=== PATIENT | female | born 1950 | race Caucasian/White ===

== ENCOUNTER 2017-06-27 12:03 | Inpatient (IN) | payer MEDICARE, OTHER ==
[2017-06-27] MEDS ORDERED: Cyclobenzaprine 10 MG Tab PO PRN (13:10)
[2017-06-27] MEDS ORDERED: Loperamide 2 MG Cap PO PRN (13:15)
[2017-06-27 13:32] LABS: CHLORIDE,CL 104 mmol/L (98-115); SODIUM,NA 138 mmol/L (136-145)
[2017-06-27] MEDS: ceFAZolin 1 GM Vial IVPUSH SCH (15:15)
[2017-06-27] MEDS: Enoxaparin 40 MG/0.4 ML Syringe SUBCUT SCH (15:15)
[2017-06-27] MEDS: Acetaminophen 650 MG Tab.ER PO SCH (15:15)
[2017-06-27] MEDS ORDERED: Simethicone 80 MG Tab.Chew PO SCH (18:00)
[2017-06-27] MEDS: metFORMIN 500 MG Tab PO SCH (18:00)
[2017-06-27] MEDS ORDERED: Loperamide 2 MG Cap PO ONE (18:00)
[2017-06-27] MEDS ORDERED: Diclofenac Sodium 75 MG Tab.EC PO SCH (21:00)
[2017-06-27] MEDS: Pregabalin 100 MG Cap PO SCH (21:00)
[2017-06-27] MEDS: Omeprazole 20 MG Cap.CR PO SCH (21:00)
[2017-06-27] MEDS ORDERED: tiZANidine 4 MG Tab PO SCH (21:00)
[2017-06-27] MEDS ORDERED: Acetaminophen 325 MG Tab ONE (23:44)
[2017-06-27] MEDS ORDERED: diphenhydrAMINE 25 MG Cap ONE (23:45)
[2017-06-28] MEDS: Acetaminophen 650 MG Tab.ER PO SCH ×2 (03:39→06:08)
[2017-06-28] MEDS: ceFAZolin 1 GM Vial IVPUSH SCH ×4 (03:39→21:13)
[2017-06-28] MEDS: Misoprostol 100 MCG Tab PO SCH ×3 (03:40→20:21)
[2017-06-28] MEDS: Diclofenac Sodium 1% Gel 100 GM Tube TOP SCH ×3 (03:42→21:10)
[2017-06-28] MEDS: Sodium Chloride 0.9% 5 ML Syringe FLUSH PRN (06:12)
[2017-06-28] MEDS ORDERED: DICLOFENAC SODIUM 75 MG PO SCH (06:22)
[2017-06-28] MEDS ORDERED: metFORMIN 500 MG Tab PO SCH ×2 (08:00→12:00)
[2017-06-28] MEDS: Pregabalin 100 MG Cap PO SCH ×2 (08:17→20:21)
[2017-06-28] MEDS: Clopidogrel 75 MG Tab PO SCH (08:17)
[2017-06-28] MEDS: Cholecalciferol (Vitamin D3) 1,000 Unit Tab PO SCH (08:18)
[2017-06-28] MEDS: Calcium Carbonate 500 MG Tab.Chew PO SCH (08:18)
[2017-06-28] MEDS: Aspirin 81 MG Tab.EC PO SCH (08:22)
[2017-06-28] MEDS: Iron Polysaccharides Complex 150 MG Cap PO SCH (08:22)
[2017-06-28] MEDS: Potassium Chloride 10 MEQ Tab.ER PO SCH (08:23)
[2017-06-28] MEDS: Furosemide 20 MG Tab PO SCH (08:23)
[2017-06-28] MEDS: Hydrochlorothiazide 12.5 MG Cap PO SCH (08:23)
[2017-06-28] MEDS: DICLOFENAC SODIUM 75 MG PO SCH ×2 (08:32→18:23)
[2017-06-28] MEDS: Enoxaparin 40 MG/0.4 ML Syringe SUBCUT SCH (08:33)
[2017-06-28] MEDS ORDERED: Non-Formulary Medication 1 Each (Ubidecarenone [Co Q-10] 100 MG) PO SCH (09:00)
--- NOTE | 2017-06-28 10:54 | PN ---
06/28/2017 PATIENT NAME: LOU BEYER CHIEF COMPLAINT: Feels much better. Cellulitis is improving. She is diuresing somewhat. HISTORY: This 66-year-old, very morbidly obese female, who I had seen in [facility] few days ago for an ulceration and cellulitis of the left lower extremity. I had desired to admit her to [facility]. However, she refused at that time. I had given her 1 g of Rocephin for her cellulitis and had her followup the subsequent day. She was subsequently placed on oral Keflex, again was suggested for admission. She refused. However, she returned yesterday for a followup and she was subsequently admitted for ulceration and cellulitis of the left lower extremity. She had stated she had this ongoing ulceration in her left lower extremity for few weeks, was evaluated a few weeks ago at [facility] by an another provider, was given some reassurance and watchful waiting. However, she admitted she subsequently injured it since then on the side of her van door. The patient does live in an [facility] [place] in some unsanitary conditions. She does have diabetes mellitus. She is prone to infections. She was admitted for IV antibiotics and close monitoring. PHYSICAL EXAMINATION: VITAL SIGNS: The patient is 337 pounds, BMI of 48, blood pressure 120/76, temperature 98.5, respiratory rate 18, and O2 sats 95% on room air. LUNGS: Clear to auscultation. CV: Grade 1 to 2 soft systolic murmur. Regular rate and rhythm. ABDOMEN: Large body habitus. Good bowel tones. EXTREMITIES: Lower extremities; 1+ nonpitting edema to her right lower extremity, 2+ to her left lower extremity, significantly larger than her right extremity. However, this is chronic. The patient does have improving erythema of the left mtz area of 7 cm x 3 cm, slightly open with surrounding erythema, however, some wrinkling noted, does have approximately three small 0.5 cm satellite lesions just superior and lateral to her ulceration. LABORATORY DATA: Dated 06/27/2017; white count 6.9, hemoglobin 11.4, hematocrit 35.6, and platelets 453,000. Sodium and potassium are normal. BUN 46, creatinine 1.18, glucose 214, and calcium 9.3. PRIMARY DIAGNOSIS: Skin infections with some surrounding cellulitis of the left lower extremity. There is significant improvement. Continue with Ancef 1 g q.8 hours. Ankle pumps. Left lower extremity elevation. Secondary problems, all which are stable. Type 2 diabetes mellitus. Recent A1c of 6.8%, restart her Actos, continue with metformin; hypertension, stable; hyperlipidemia; obesity; overactive bladder; lumbar stenosis; coronary artery disease with stent, which is chronic. She is on dual-antiplatelet therapy. SI joint pain. 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 Osteoarthritis, Tylenol Arthritis. Overall plan: We will keep her inpatient today, elevate left lower extremity. Give her Lasix 20 mg x1 today and continue antibiotics. Monitor her carefully. /[id number]/MODL
[2017-06-28] MEDS ORDERED: Loperamide 2 MG Cap PO PRN (11:30)
[2017-06-28] MEDS: metFORMIN 500 MG Tab PO SCH ×2 (12:08→18:22)
[2017-06-28] MEDS ORDERED: Simethicone 80 MG Tab.Chew PO PRN (13:00)
[2017-06-28] MEDS: Omeprazole 20 MG Cap.CR PO SCH (20:22)
[2017-06-28] MEDS: Acetaminophen 650 MG Tab.ER PO PRN (21:06)
[2017-06-28] MEDS: diphenhydrAMINE 25 MG Cap PO PRN (21:06)
[2017-06-29] MEDS: ceFAZolin 1 GM Vial IVPUSH SCH ×3 (05:50→22:15)
[2017-06-29] MEDS: Sodium Chloride 0.9% 5 ML Syringe FLUSH PRN ×2 (05:50→22:21)
[2017-06-29] MEDS: DICLOFENAC SODIUM 75 MG PO SCH ×2 (07:32→17:54)
[2017-06-29] MEDS: Diclofenac Sodium 1% Gel 100 GM Tube TOP SCH ×3 (07:34→22:22)
[2017-06-29] MEDS: Calcium Carbonate 500 MG Tab.Chew PO SCH (08:25)
[2017-06-29] MEDS: Misoprostol 100 MCG Tab PO SCH ×2 (08:25→22:12)
[2017-06-29] MEDS: Aspirin 81 MG Tab.EC PO SCH (08:26)
[2017-06-29] MEDS: Hydrochlorothiazide 12.5 MG Cap PO SCH (08:26)
[2017-06-29] MEDS: Cholecalciferol (Vitamin D3) 1,000 Unit Tab PO SCH (08:26)
[2017-06-29] MEDS: Furosemide 20 MG Tab PO SCH (08:26)
[2017-06-29] MEDS: Potassium Chloride 10 MEQ Tab.ER PO SCH (08:26)
[2017-06-29] MEDS: Clopidogrel 75 MG Tab PO SCH (08:26)
[2017-06-29] MEDS: Iron Polysaccharides Complex 150 MG Cap PO SCH (08:26)
[2017-06-29] MEDS: Pregabalin 100 MG Cap PO SCH ×2 (08:34→22:12)
--- NOTE | 2017-06-29 09:02 | PCM.PN ---
- General Info Date of Service: 06/29/17 Functional Status: Reports: Pain Controlled, Tolerating Diet, Incentive Spirometry. Denies: Ambulating, New Symptoms - Review of Systems General: Denies: Fever, Weakness Gastrointestinal: Denies: Nausea Musculoskeletal: Reports: Other Neurological: Reports: No Symptoms Psychiatric: Reports: No Symptoms - Patient Data Vitals - Most Recent: Last Vital Signs Temp 97.2 F 06/29/17 05:18 Pulse 72 06/29/17 05:18 Resp 18 06/29/17 05:18 BP 116/71 06/29/17 08:25 Pulse Ox 94 L 06/29/17 05:18 Weight - Most Recent: 337 lb 4.8 oz I&O - Last 24 Hours: Intake & Output 06/28/17 06/29/17 06/29/17 22:59 06:59 14:59 Intake Total 470 100 Output Total 550 850 Balance -80 -750 Lab Results Last 24 Hours: Laboratory Results - last 24 hr 06/28/17 Range/Units 12:03 POC Glucose 178 H (74-106) mg/dl Dale Results Last 24 Hours: Microbiology 06/27/17 13:04 Gram Stain - Final Wound - Leg, Left Med Orders - Current: Current Medications Acetaminophen (Tylenol Arthritis Pain) 650 mg PO Q8H PRN PRN Reason: pain Last Admin: 06/28/17 21:06 Dose: 650 mg Aspirin (Halfprin) 81 mg PO DAILY [facility] Last Admin: 06/29/17 08:26 Dose: 81 mg Calcium Carbonate/Glycine (Tums) 500 mg PO DAILY [facility] Last Admin: 06/29/17 08:25 Dose: Not Given Cefazolin Sodium (Ancef) 1 gm IVPUSH Q8HR [facility] Last Admin: 06/29/17 05:50 Dose: 1 gm Cholecalciferol (Vitamin D3) 1,000 units PO DAILY [facility] Last Admin: 06/29/17 08:26 Dose: 1,000 units Clopidogrel Bisulfate (Plavix) 75 mg PO DAILY [facility] Last Admin: 06/29/17 08:26 Dose: 75 mg Diclofenac Sodium (Voltaren 1% Gel) 2 gm TOP BID [facility] Last Admin: 06/29/17 08:25 Dose: Not Given Diphenhydramine HCl (Benadryl) 25 mg PO BEDTIME PRN PRN Reason: SLEEP Last Admin: 06/28/17 21:06 Dose: 25 mg Furosemide (Lasix) 20 mg PO DAILY [facility] Last Admin: 06/29/17 08:26 Dose: 20 mg Hydrochlorothiazide (Hydrochlorothiazide) 12.5 mg PO DAILY [facility] Last Admin: 06/29/17 08:26 Dose: 12.5 mg Loperamide HCl (Imodium) 2 mg PO Q4H PRN PRN Reason: LOOSE STOOL Metformin HCl (Glucophage) 1,500 mg PO DAILY@1800 [facility] Last Admin: 06/28/17 18:22 Dose: 1,500 mg Metformin HCl (Glucophage) 1,000 mg PO DAILY@1200 [facility] Last Admin: 06/28/17 12:08 Dose: 1,000 mg Misoprostol (Cytotec) 200 mcg PO BID [facility] Last Admin: 06/29/17 08:25 Dose: 200 mcg Omeprazole (Omeprazole) 20 mg PO BEDTIME [facility] Last Admin: 06/28/17 20:22 Dose: 20 mg Ptom Tanzeum (30mg Pen Ijn) 1 each SUBCUT Mcdonough@0900 [facility] Ptom Diclofenac (Sodium Er 75 Mg Tab) 1 each PO BIDMEALS [facility] Last Admin: 06/29/17 07:32 Dose: 1 each Polysaccharide Iron Complex (Ferrex 150) 150 mg PO DAILY [facility] Last Admin: 06/29/17 08:26 Dose: 150 mg Potassium Chloride (Klor-Con 10) 10 meq PO DAILY [facility] Last Admin: 06/29/17 08:26 Dose: 10 meq Pregabalin (Lyrica) 100 mg PO BID [facility] Last Admin: 06/29/17 08:34 Dose: 100 mg Simethicone (Simethicone) 120 mg PO TIDPC PRN PRN Reason: gas Sodium Chloride (Syrex Flush) 5 ml FLUSH Q8HR PRN PRN Reason: Keep Vein Open Last Admin: 06/29/17 05:50 Dose: 5 ml Valsartan (Diovan) 80 mg PO DAILY [facility] Last Admin: 06/29/17 08:25 Dose: 80 mg Discontinued Medications Acetaminophen (Tylenol Arthritis Pain) 650 mg PO Q8H [facility] Last Admin: 06/28/17 06:08 Dose: 650 mg Acetaminophen (Tylenol) Confirm Administered Dose 650 mg .ROUTE .STK-MED ONE Stop: 06/27/17 23:45 Last Admin: 06/27/17 23:45 Dose: 650 mg Cyclobenzaprine HCl (Flexeril) 10 mg PO TID PRN PRN Reason: muscle spasms Diclofenac Sodium (Voltaren) 75 mg PO BID [facility] Last Admin: 06/28/17 03:42 Dose: Not Given Diphenhydramine HCl (Benadryl) Confirm Administered Dose 25 mg .ROUTE .STK-MED ONE Stop: 06/27/17 23:46 Last Admin: 06/27/17 23:45 Dose: 25 mg Enoxaparin Sodium (Lovenox) 40 mg SUBCUT DAILY [facility] Last Admin: 06/28/17 08:33 Dose: 40 mg Loperamide HCl (Imodium) 2 mg PO ASDIRECTED PRN PRN Reason: LOOSE STOOL Loperamide HCl (Imodium) 4 mg PO ONETIME ONE Stop: 06/27/17 18:01 Last Admin: 06/27/17 18:00 Dose: 4 mg Metformin HCl (Glucophage) 1,000 mg PO 1200 FIONA Metformin HCl (Glucophage) 1,000 mg PO WITHBREAKFAST [facility] Last Admin: 06/28/17 09:06 Dose: Not Given Non-Formulary Medication (Ubidecarenone [Co Q-10]) 100 mg PO DAILY [facility] Albiglutide [Tanzeum (]) 0 each SUBCUT Mcdonough [facility] Ptom Diclofenac (Sodium Er 75 Mg Tab) 1 each PO BID [facility] Simethicone (Simethicone) 125 mg PO TIDMEALS [facility] Last Admin: 06/28/17 08:12 Dose: Not Given Tizanidine HCl (Zanaflex) 4 mg PO BID [facility] Last Admin: 06/28/17 08:12 Dose: Not Given - Exam Quality Assessment: No: Supplemental Oxygen General: Alert, Oriented Extremities: Pedal Edema (Left Lower extremity: 3+ edema), Redness (redness improving LLE, significant healing ongoing of both cellulitis and wound, slight serosanguinous drainage. ). No: Bibiana's Sign, Leg Pain Skin: Other (redness improving LLE, significant healing ongoing of both cellulitis and wound, slight serosanguinous drainage. ) Wound/Incisions: Healing Well, Drainage, Erythema Improving Neurological: No New Focal Deficit Psy/Mental Status: Alert, Normal Affect, Normal Mood - Problem List Review Problem List Initiated/Reviewed/Updated: Yes - My Orders Last 24 Hours: My Active Orders 06/28/17 08:00 Patient's Own Medication [Ptom] 1 each PO BIDMEALS 06/28/17 09:00 Aspirin [Halfprin] 81 mg PO DAILY Calcium Carbonate [Tums] 500 mg PO DAILY Cholecalciferol (Vitamin D3) [Vitamin D3] 1,000 units PO DAILY Clopidogrel [Plavix] 75 mg PO DAILY Furosemide [Lasix] 20 mg PO DAILY Hydrochlorothiazide 12.5 mg PO DAILY Iron Polysaccharides Complex [Ferrex 150] 150 mg PO DAILY Potassium Chloride [Klor-Con 10] 10 meq PO DAILY Valsartan [Diovan] 80 mg PO DAILY 06/28/17 11:30 Loperamide [Imodium] 2 mg PO Q4H PRN 06/28/17 12:00 metFORMIN [Glucophage] 1,000 mg PO DAILY@1200 06/28/17 13:00 Simethicone 120 mg PO TIDPC PRN 06/28/17 13:03 RT Incentive Spirometry [RC] ASDIRECTED 07/03/17 09:00 Patient's Own Medication [Ptom] 1 each SUBCUT Mcdonough@0900 - Plan Plan:: Primary diagnosis skin infection with surrounding cellulitis LLE, continues to improve, less serosanguineous weeping today, healing well, no more warmth, less edema, will allow ambulation on the floor today, culture demonstrate few gram-positive cocci , no PMNs, clinically responding to Ancef, will continue Chronic problems T2DM, A1c 6.8%, restarted Actos and metformin Obesity, OAB, lumbar stenosis, Coronary artery disease with stent, DAPT Facet joint syndrome, controlled on NSAID cream, Osteoarthritis, controlled with Tylenol arthritis Overall plan today, ambulate on the floor, continue IV antibiotics, anticipate discharge in a.m. with by mouth antibiotics
[2017-06-29] MEDS ORDERED: MAX FREEZE TOP PRN (09:55)
[2017-06-29] MEDS: metFORMIN 500 MG Tab PO SCH ×2 (11:48→17:54)
[2017-06-29] MEDS: Omeprazole 20 MG Cap.CR PO SCH (22:11)
[2017-06-29] MEDS: Acetaminophen 650 MG Tab.ER PO PRN (22:12)
[2017-06-29] MEDS: diphenhydrAMINE 25 MG Cap PO PRN (22:12)
[2017-06-30] MEDS: ceFAZolin 1 GM Vial IVPUSH SCH (05:27)
[2017-06-30] MEDS: Diclofenac Sodium 1% Gel 100 GM Tube TOP SCH ×2 (07:02→08:30)
[2017-06-30] MEDS: Hydrochlorothiazide 12.5 MG Cap PO SCH (08:29)
[2017-06-30] MEDS: Iron Polysaccharides Complex 150 MG Cap PO SCH (08:29)
[2017-06-30] MEDS: Misoprostol 100 MCG Tab PO SCH (08:29)
[2017-06-30] MEDS: DICLOFENAC SODIUM 75 MG PO SCH (08:29)
[2017-06-30] MEDS: Clopidogrel 75 MG Tab PO SCH (08:29)
[2017-06-30] MEDS: Pregabalin 100 MG Cap PO SCH (08:29)
[2017-06-30] MEDS: Furosemide 20 MG Tab PO SCH (08:30)
[2017-06-30] MEDS: Aspirin 81 MG Tab.EC PO SCH (08:30)
[2017-06-30] MEDS: Cholecalciferol (Vitamin D3) 1,000 Unit Tab PO SCH (08:30)
[2017-06-30] MEDS: Calcium Carbonate 500 MG Tab.Chew PO SCH (08:30)
[2017-06-30] MEDS: Potassium Chloride 10 MEQ Tab.ER PO SCH (08:30)
[2017-06-30 08:33] VITALS: BP 131/68
--- NOTE | 2017-06-30 09:21 | PCM.DCSUM1 ---
Discharge Summary - Hospital Course Brief History: 66-year-old obese female was admitted due to wound infection and cellulitis left lower extremity. She was initially seen [facility] , refused admission due to personal reasons and schedule conflicts, was given 1 g of Rocephin followed up the next day continued to refuse admission was given oral antibiotics and eventually upon follow-up agreed to be admitted to the hospital for IV antibiotics. - Discharge Data Discharge Date: 06/30/17 Discharge Disposition: Home, Self-Care 01 Condition: Good - Patient Summary/Data Complications: No complications during hospital stay Hospital Course: Patient's hospital course went as expected without complication, had no fever, we continued with twice a day dressing changes, shower, use cleansing sterile soap, Ancef IV antibiotics, she improved approximately 80-90% with decreasing erythrema, decreasing swelling and drainage. Wound culture demonstrate few gram- positive cocci, no PMNs. Her left lower extremity was elevated - Patient Instructions Diet: Usual Diet as Tolerated Activity: Elevate Extremity Driving: Do Not Drive Showering/Bathing: May Shower Wound/Incision Care: Keep Operative Site/Wound Site Clean and Dry, Change Dressing Daily (Twice a day daily dressing) Notify Provider of: Fever, Increased Pain, Swelling and Redness, Drainage Other/Special Instructions: Change dressing twice daily as instructed, shower gently cleanse with Dial soap, blot dry, then apply dressing, keep lower extremity elevated as much as possible, wrap left leg as instructed upon discharge. Avoid putting any creams or ointments. If dressing becomes soiled immediately shower and reapply new sterile dressing, (avoid using old dressing) - Discharge Plan Prescriptions/Med Rec: Cephalexin [Keflex] 500 mg PO Q8H #15 cap Home Medications: Home Meds Glimepiride [Amaryl] 4 mg PO DAILY 04/23/14 [History] Meclizine [Antivert] 25 mg PO Q4HR PRN 04/23/14 [History] Pioglitazone [Actos] 30 mg PO DAILY 04/23/14 [History] Pregabalin [Lyrica] 100 mg PO BID 04/23/14 [History] Valsartan/Hydrochlorothiazide [Valsartan-Hctz 80-12.5 mg Tab] 1 each PO DAILY [History] diphenhydrAMINE HCl [Benadryl] 25 mg PO DAILY PRN 04/23/14 [History] metFORMIN [Glucophage] 1,000 mg PO DAILY@1200 04/23/14 [History] Acetaminophen [Tylenol Arthritis Pain] 650 mg PO Q8H PRN 07/17/14 [History] Calcium Carbonate [Calcium] 500 mg PO DAILY 07/17/14 [History] Cholecalciferol (Vitamin D3) [Vitamin D3] 1,000 unit PO DAILY 07/17/14 [History] metFORMIN [Glucophage] 1,500 mg PO DAILY@1800 07/17/14 [History] Albiglutide [Tanzeum] 30 mg SQ WEEKLY #4 ml 07/31/14 [Rx] Omeprazole 20 mg PO BEDTIME 08/26/15 [History] Clopidogrel [Plavix] 75 mg PO DAILY 12/12/15 [History] Diclofenac Sodium [Voltaren 1% Gel] 2 gm TOP BID 12/12/15 [History] Arnica 1 applic TOP TID PRN 06/27/17 [History] Aspirin 81 mg PO DAILY 06/27/17 [History] Diclofenac Sodium [Voltaren] 75 mg PO BID 06/27/17 [History] Fenofibrate 80 mg PO DAILY 06/27/17 [History] Furosemide [Lasix] 20 mg PO DAILY 06/27/17 [History] Hydrocortisone [Hydrocortisone 1% Crm] 1 applic TOP BID 06/27/17 [History] Iron Polysaccharides Complex [Ferrex 150] 150 mg PO DAILY 06/27/17 [History] Loperamide HCl [Imodium A-D] 2 mg PO ASDIRECTED 06/27/17 [History] Misoprostol [Cytotec] 200 mg PO BID 06/27/17 [History] Niacin 100 mg PO TID 06/27/17 [History] Nitroglycerin [Nitrostat] 0.4 mg SL Q5M PRN 06/27/17 [History] Phytonadione [Mephyton] 5 mg PO ASDIRECTED PRN 06/27/17 [History] Potassium Chloride [Klor-Con 10] 10 meq PO DAILY 06/27/17 [History] Simethicone [Gas Relief] 125 mg PO TIDMEALS PRN 06/27/17 [History] Vitamin E 100 mg PO DAILY 06/27/17 [History] Echinacea Acz 1 tab PO DAILY 06/28/17 [History] Excedrin Back And Body 1 tab PO ASDIRECTED PRN 06/28/17 [History] diphenhydrAMINE HCl [Diphenhydramine HCl] 25 mg PO 2100 PRN 06/28/17 [History] Cephalexin [Keflex] 500 mg PO Q8H #15 cap 06/30/17 [Rx] Referrals: Fredo Zarate [employer] [Nurse Practitioner] - 07/05/17 - Discharge Summary/Plan Comment DC Time >30 min.: Yes Discharge Summary/Plan Comment: Final diagnosis skin infection with surrounding cellulitis LLE, cx few gram-positive cocci, no PMNs significant improvement, Chronic problems T2DM, Obesity, OAB, lumbar stenosis, Coronary artery disease with stent, Facet joint syndrome, Osteoarthritis, Disposition Patient will be discharged from hospital with home self-care dressings twice a day, shower, gentle dials so, wrapped carefully, do not apply any creams or ointments, detailed instructions on proper wrapping, keep elevated, avoid scrubbing healthy granulating tissue as demonstrated, if dressing soiled apply new sterile dressing, NO NOT REUSE DRESSINGS, keep left leg elevated, Keflex 500 mg by mouth every 8 hours 5 days. I will see her next Tuesday in the [place] [facility]. Report worsening pain, erythremia or worsening drainage. - General Info Date of Service: 06/30/17 Functional Status: Reports: Pain Controlled - Review of Systems Gastrointestinal: Denies: Diarrhea Skin: Reports: Rash (Left lower extremity) - Patient Data Vitals - Most Recent: Last Vital Signs Temp 97.6 F 06/30/17 06:09 Pulse 85 06/30/17 06:09 Resp 18 06/30/17 06:09 BP 131/68 06/30/17 08:29 Pulse Ox 94 L 06/30/17 06:09 Weight - Most Recent: 337 lb 4.8 oz I&O - Last 24 hours: Intake & Output 06/29/17 06/30/17 06/30/17 22:59 06:59 14:59 Intake Total 400 50 Output Total 400 150 Balance 0 -100 NANETTE Results - Last 24 hrs: Microbiology 06/27/17 13:04 Gram Stain - Final Wound - Leg, Left Med Orders - Current: Current Medications Acetaminophen (Tylenol Arthritis Pain) 650 mg PO Q8H PRN PRN Reason: pain Last Admin: 06/29/17 22:12 Dose: 650 mg Aspirin (Halfprin) 81 mg PO DAILY [facility] Last Admin: 06/30/17 08:30 Dose: 81 mg Calcium Carbonate/Glycine (Tums) 500 mg PO DAILY [facility] Last Admin: 06/30/17 08:30 Dose: Not Given Cefazolin Sodium (Ancef) 1 gm IVPUSH Q8HR [facility] Last Admin: 06/30/17 05:27 Dose: 1 gm Cholecalciferol (Vitamin D3) 1,000 units PO DAILY [facility] Last Admin: 06/30/17 08:30 Dose: 1,000 units Clopidogrel Bisulfate (Plavix) 75 mg PO DAILY [facility] Last Admin: 06/30/17 08:29 Dose: 75 mg Diclofenac Sodium (Voltaren 1% Gel) 2 gm TOP BID [facility] Last Admin: 06/30/17 08:30 Dose: Not Given Diphenhydramine HCl (Benadryl) 25 mg PO BEDTIME PRN PRN Reason: SLEEP Last Admin: 06/29/17 22:12 Dose: 25 mg Furosemide (Lasix) 20 mg PO DAILY [facility] Last Admin: 06/30/17 08:30 Dose: 20 mg Hydrochlorothiazide (Hydrochlorothiazide) 12.5 mg PO DAILY [facility] Last Admin: 06/30/17 08:29 Dose: 12.5 mg Loperamide HCl (Imodium) 2 mg PO Q4H PRN PRN Reason: LOOSE STOOL Metformin HCl (Glucophage) 1,500 mg PO DAILY@1800 [facility] Last Admin: 06/29/17 17:54 Dose: 1,500 mg Metformin HCl (Glucophage) 1,000 mg PO DAILY@1200 [facility] Last Admin: 06/29/17 11:48 Dose: 1,000 mg Misoprostol (Cytotec) 200 mcg PO BID [facility] Last Admin: 06/30/17 08:29 Dose: 200 mcg Omeprazole (Omeprazole) 20 mg PO BEDTIME [facility] Last Admin: 06/29/17 22:11 Dose: 20 mg Ptom Tanzeum (30mg Pen Ijn) 1 each SUBCUT Mcdonough@0900 [facility] Ptom Diclofenac (Sodium Er 75 Mg Tab) 1 each PO BIDMEALS [facility] Last Admin: 06/30/17 08:29 Dose: 1 each Max-Freeze 0 each TOP BID PRN PRN Reason: PAIN Last Admin: 06/29/17 15:36 Dose: 1 each Polysaccharide Iron Complex (Ferrex 150) 150 mg PO DAILY [facility] Last Admin: 06/30/17 08:29 Dose: 150 mg Potassium Chloride (Klor-Con 10) 10 meq PO DAILY [facility] Last Admin: 06/30/17 08:30 Dose: 10 meq Pregabalin (Lyrica) 100 mg PO BID [facility] Last Admin: 06/30/17 08:29 Dose: 100 mg Simethicone (Simethicone) 120 mg PO TIDPC PRN PRN Reason: gas Sodium Chloride (Syrex Flush) 5 ml FLUSH Q8HR PRN PRN Reason: Keep Vein Open Last Admin: 06/29/17 22:21 Dose: 5 ml Valsartan (Diovan) 80 mg PO DAILY [facility] Last Admin: 06/30/17 08:29 Dose: 80 mg Discontinued Medications Acetaminophen (Tylenol Arthritis Pain) 650 mg PO Q8H [facility] Last Admin: 06/28/17 06:08 Dose: 650 mg Acetaminophen (Tylenol) Confirm Administered Dose 650 mg .ROUTE .STK-MED ONE Stop: 06/27/17 23:45 Last Admin: 06/27/17 23:45 Dose: 650 mg Cyclobenzaprine HCl (Flexeril) 10 mg PO TID PRN PRN Reason: muscle spasms Diclofenac Sodium (Voltaren) 75 mg PO BID [facility] Last Admin: 06/28/17 03:42 Dose: Not Given Diphenhydramine HCl (Benadryl) Confirm Administered Dose 25 mg .ROUTE .STK-MED ONE Stop: 06/27/17 23:46 Last Admin: 06/27/17 23:45 Dose: 25 mg Enoxaparin Sodium (Lovenox) 40 mg SUBCUT DAILY [facility] Last Admin: 06/28/17 08:33 Dose: 40 mg Loperamide HCl (Imodium) 2 mg PO ASDIRECTED PRN PRN Reason: LOOSE STOOL Loperamide HCl (Imodium) 4 mg PO ONETIME ONE Stop: 06/27/17 18:01 Last Admin: 06/27/17 18:00 Dose: 4 mg Metformin HCl (Glucophage) 1,000 mg PO 1200 FIONA Metformin HCl (Glucophage) 1,000 mg PO WITHBREAKFAST [facility] Last Admin: 06/28/17 09:06 Dose: Not Given Non-Formulary Medication (Ubidecarenone [Co Q-10]) 100 mg PO DAILY [facility] Albiglutide [Tanzeum (]) 0 each SUBCUT Mcdonough [facility] Ptom Diclofenac (Sodium Er 75 Mg Tab) 1 each PO BID [facility] Simethicone (Simethicone) 125 mg PO TIDMEALS [facility] Last Admin: 06/28/17 08:12 Dose: Not Given Tizanidine HCl (Zanaflex) 4 mg PO BID [facility] Last Admin: 06/28/17 08:12 Dose: Not Given - Exam Quality Assessment: Denies: Supplemental Oxygen General: Reports: Alert, Oriented Lungs: Reports: Clear to Auscultation, Normal Respiratory Effort Cardiovascular: Reports: Regular Rate, Regular Rhythm Skin: Reports: Moist, Other Wound/Incisions: Reports: Drainage (Mild serosanguineous drainage, much less erythremia left lower extremity healing well, cellulitis surrounding the wound left lower extremity proximally 80-90% resolved)
[2017-07-03] MEDS ORDERED: ALBIGLUTIDE SUBCUT SCH (09:00)
[2017-07-03] MEDS ORDERED: ALBIGLUTIDE 30 MG SUBCUT SCH (09:00)
== END 2017-06-30 10:50 | disposition home or self-care (01) | DRG 603 ==
LOC: KA.MS 12:40
PROVIDERS: ADMIT Nurse Practitioner Family; ATTEND Family Medicine
DX: L03.116 Cellulitis of left lower limb (principal); Z68.42 Body mass index [BMI] 45.0-49.9, adult; B95.2 Enterococcus as the cause of diseases classified elsewhere; I25.10 Atherosclerotic heart disease of native coronary artery without angina pectoris; E11.9 Type 2 diabetes mellitus without complications; I10 Essential (primary) hypertension; E78.00 Pure hypercholesterolemia, unspecified; E66.01 Morbid (severe) obesity due to excess calories; M48.061 Spinal stenosis, lumbar region without neurogenic claudication; M19.90 Unspecified osteoarthritis, unspecified site; N32.81 Overactive bladder; Z79.899 Other long term (current) drug therapy; Z88.8 Allergy status to other drugs, medicaments and biological substances; Z95.5 Presence of coronary angioplasty implant and graft
CPT/HCPCS: 80048; 82962; 85027; 87070; 87186; 87205; A9270-GY; J0690; J1650

== ENCOUNTER 2018-12-03 14:42 | Emergency (ER) | payer MEDICARE, OTHER ==
[2018-12-03] MEDS ORDERED: Sodium Chloride 0.9% 1,000 ML IV ONE (15:03)
[2018-12-03 15:08] VITALS: BP 132/55; PULSE 95
[2018-12-03 15:33] LABS: ANION GAP 15.6 mmol/L (5-15)
[2018-12-03] MEDS ORDERED: Amoxicillin/Clavulanate K 875-125 MG Tab PO ONE ×2 (16:00→16:05)
--- NOTE | 2018-12-03 16:13 | EDM.PDOC ---
ED HPI GENERAL MEDICAL PROBLEM - General Chief Complaint: General Stated Complaint: cold, headache Time Seen by Provider: 12/03/18 15:14 Source of Information: Reports: Patient History Limitations: Reports: No Limitations - History of Present Illness INITIAL COMMENTS - FREE TEXT/NARRATIVE: Patient presents with sinus congestion and headache. The congestion started about a month ago and the headache just the last few days. Today she also started to have a fever. She gets frequent UTIs and has noticed some dysuria also. She took amoxicillin most recently two months ago for either her leg cellulitis or a UTI. She has a chronic sore on left tibia that was quite infected awhile back but isn't too bad now she says. She has tried several different compression stockings OTC but isn't able to get them on. - Related Data Allergies Allergy/AdvReac Type Severity Reaction Status Date / Time duloxetine Allergy Cannot Verified 12/03/18 15:10 Remember epinephrine Allergy Cannot Verified 12/03/18 15:10 [From Primatene Mist] Remember epinephrine bitartrate Allergy Cannot Verified 12/03/18 15:10 [From Primatene Mist] Remember erythromycin base Allergy Diarrhea Verified 12/03/18 15:10 [Erythromycin Base] nitrofurantoin Allergy Rash Verified 12/03/18 15:10 [From Macrobid] nitrofurantoin Allergy Rash Verified 12/03/18 15:10 macrocrystalline [From Macrobid] phenazopyridine HCl Allergy Rash Verified 12/03/18 15:10 [From Pyridium] red dye Allergy Nausea and Verified 12/03/18 15:10 Vomiting sodium hypochlorite solution Allergy Difficulty Verified 12/03/18 15:10 [sodium hypochlorite] Breathing Xrepaaf-Chd-Dva Reductase Allergy Joint Pain Verified 12/03/18 15:10 Inhibitor tetanus toxoid, adsorbed Allergy Cannot Verified 12/03/18 15:10 Remember sher retriever Allergy Cannot Uncoded 12/03/18 15:10 Remember Home Meds: Home Meds Glimepiride [Amaryl] 4 mg PO DAILY 04/23/14 [History] Meclizine [Antivert] 25 mg PO Q4HR PRN 04/23/14 [History] Pioglitazone [Actos] 30 mg PO DAILY 04/23/14 [History] Pregabalin [Lyrica] 100 mg PO BID 04/23/14 [History] Valsartan/Hydrochlorothiazide [Valsartan-Hctz 80-12.5 mg Tab] 1 each PO DAILY [History] diphenhydrAMINE HCl [Benadryl] 25 mg PO DAILY PRN 04/23/14 [History] metFORMIN [Glucophage] 1,000 mg PO DAILY@1200 04/23/14 [History] Acetaminophen [Tylenol Arthritis Pain] 650 mg PO Q8H PRN 07/17/14 [History] Calcium Carbonate [Calcium] 500 mg PO DAILY 07/17/14 [History] Cholecalciferol (Vitamin D3) [Vitamin D3] 1,000 unit PO DAILY 07/17/14 [History] metFORMIN [Glucophage] 1,500 mg PO DAILY@1800 07/17/14 [History] Albiglutide [Tanzeum] 30 mg SQ WEEKLY #4 ml 07/31/14 [Rx] Omeprazole 20 mg PO BEDTIME 08/26/15 [History] Clopidogrel [Plavix] 75 mg PO DAILY 12/12/15 [History] Diclofenac Sodium [Voltaren 1% Gel] 2 gm TOP BID 12/12/15 [History] Arnica 1 applic TOP TID PRN 06/27/17 [History] Aspirin 81 mg PO DAILY 06/27/17 [History] Diclofenac Sodium [Voltaren] 75 mg PO BID 06/27/17 [History] Fenofibrate 80 mg PO DAILY 06/27/17 [History] Furosemide [Lasix] 20 mg PO DAILY 06/27/17 [History] Hydrocortisone [Hydrocortisone 1% Crm] 1 applic TOP BID 06/27/17 [History] Iron Polysaccharides Complex [Ferrex 150] 150 mg PO DAILY 06/27/17 [History] Loperamide HCl [Imodium A-D] 2 mg PO ASDIRECTED 06/27/17 [History] Misoprostol [Cytotec] 200 mg PO BID 06/27/17 [History] Niacin 100 mg PO TID 06/27/17 [History] Nitroglycerin [Nitrostat] 0.4 mg SL Q5M PRN 06/27/17 [History] Phytonadione [Mephyton] 5 mg PO ASDIRECTED PRN 06/27/17 [History] Potassium Chloride [Klor-Con 10] 10 meq PO DAILY 06/27/17 [History] Simethicone [Gas Relief] 125 mg PO TIDMEALS PRN 06/27/17 [History] Vitamin E 100 mg PO DAILY 06/27/17 [History] Echinacea Acz 1 tab PO DAILY 06/28/17 [History] Excedrin Back And Body 1 tab PO ASDIRECTED PRN 06/28/17 [History] diphenhydrAMINE HCl [Diphenhydramine HCl] 25 mg PO 2100 PRN 06/28/17 [History] cephALEXin [Keflex] 500 mg PO Q8H #15 cap 06/30/17 [Rx] Past Medical History HEENT History: Reports: Impaired Vision Cardiovascular History: Reports: CAD, High Cholesterol, Hypertension, Stents Other Cardiovascular History: stent at [facility] 7 weeks ago Respiratory History: Reports: Other (See Below) Other Respiratory History: allergies Gastrointestinal History: Reports: GERD Genitourinary History: Reports: Urinary Incontinence RESEARCH ADMINISTRATOR History: Reports: Endometriosis Other RESEARCH ADMINISTRATOR History: no children; hysterectomy Musculoskeletal History: Reports: Arthritis, Back Pain, Chronic, Osteoarthritis , Other (See Below) Other Musculoskeletal History: Paronychia of left thumb, chronic right SI joint pain,lumbar stenosis, synovial cyst of lumbar facet joint,chauhan's cyst of knee Neurological History: Reports: Migraines, Neuropathy, Diabetic Psychiatric History: Reports: Anxiety, Depression Endocrine/Metabolic History: Reports: Diabetes, Type II, Obesity/BMI 30+ Hematologic History: Reports: B12 Deficiency Dermatologic History: Reports: Cellulitis, Other (See Below) Other Dermatologic History: skin infection, benign skin lesion of sternum, diabetic ulcer of toe left foot - Infectious Disease History Infectious Disease History: Reports: Chicken Pox, Measles, Mumps - Past Surgical History Head Surgeries/Procedures: Reports: None HEENT Surgical History: Reports: None Cardiovascular Surgical History: Reports: Coronary Artery Stent Respiratory Surgical History: Reports: None GI Surgical History: Reports: None Female Surgical History: Reports: Cystoscopy, Hysterectomy Endocrine Surgical History: Reports: None Neurological Surgical History: Reports: None Musculoskeletal Surgical History: Reports: Arthroscopic Knee, Hip Replacement Dermatological Surgical History: Reports: None Social & Family History - Family History Family Medical History: Noncontributory - Tobacco Use Smoking Status *Q: Never Smoker - Caffeine Use Caffeine Use: Reports: Soda - Recreational Drug Use Recreational Drug Use: No ED ROS GENERAL - Review of Systems Review Of Systems: See Below Constitutional: Reports: Fever. Denies: Chills, Malaise, Weakness HEENT: Reports: Sinus Problem. Denies: Ear Pain, Vision Change Respiratory: Reports: Cough (mild). Denies: Shortness of Breath Cardiovascular: Denies: Chest Pain, Lightheadedness, Syncope Endocrine: Reports: Other (DM) GI/Abdominal: Reports: Diarrhea (chronic), Nausea. Denies: Abdominal Pain, Vomiting : Reports: Dysuria, Incontinence Musculoskeletal: Reports: Other (see HPI) Skin: Denies: Cyanosis, Jaundice, Mottled, Pallor, Diaphoresis Neurological: Denies: Confusion, Dizziness, Seizure, Syncope, Trouble Speaking, Difficulty Walking Psychiatric: Denies: Agitation, Anxiety ED EXAM, GENERAL - Physical Exam Exam: See Below Exam Limited By: No Limitations General Appearance: Alert, WD/WN, No Apparent Distress Eye Exam: Bilateral Eye: EOMI, Normal Inspection, PERRL Ears: Normal External Exam, Normal Canal, Hearing Grossly Normal, Normal TMs Nose: Normal Inspection, No Blood Throat/Mouth: Normal Inspection, Normal Lips, Normal Oropharynx, Normal Voice, No Airway Compromise Head: Atraumatic, Normocephalic, Sinus Tenderness (maxillary > frontal bilat) Neck: Normal Inspection, Supple, Non-Tender, Full Range of Motion Respiratory/Chest: No Respiratory Distress, Lungs Clear, Normal Breath Sounds, No Accessory Muscle Use Cardiovascular: Normal Peripheral Pulses, Regular Rate, Rhythm, No Murmur GI/Abdominal: Normal Bowel Sounds, Soft, No Organomegaly, No Distention, Tender (mild, low and LUQ ). No: Distended, Guarding, Rigid, Rebound Back Exam: Normal Inspection, Full Range of Motion. No: CVA Tenderness (L), CVA Tenderness (R) Extremities: Normal Range of Motion, Pedal Edema (up to mid-calf bilat, L>R), Redness (chronic venous stasis LLE with erythema that doesn't appear to be cellulitis; 8mm scabbed sore left mid ant tibia) Neurological: Alert, Oriented, Normal Cognition, No Motor/Sensory Deficits Psychiatric: Normal Affect, Normal Mood Skin Exam: Warm, Dry, Other (see Extremities above) Lymphatic: No Adenopathy Course - Vital Signs Last Recorded V/S: Last Vital Signs Temp 100.3 F 12/03/18 14:45 Pulse 95 12/03/18 14:45 Resp 16 12/03/18 14:45 BP 132/55 L 12/03/18 14:45 Pulse Ox 97 12/03/18 14:45 - Orders/Labs/Meds Labs: Laboratory Tests 12/03/18 12/03/18 12/03/18 Range/Units 14:50 14:55 14:55 WBC 15.28 H (5.00-10.00) 10^3/uL RBC 3.84 (3.80-5.50) 10^6/uL Hgb 11.8 L (12.0-16.0) g/dL Hct 35.6 L (37.0-47.0) % MCV 92.7 H (82.0-92.0) fL MCH 30.7 (27.0-31.0) pg MCHC 33.1 (32.0-36.0) g/dL RDW 14.0 (11.5-14.5) % Plt Count 319 (150-400) 10^3/uL MPV 9.9 (7.4-10.4) fL Immature Gran % (Auto) 0.2 (0.0-5.0) % Neut % (Auto) 84.8 H (50.0-70.0) % Lymph % (Auto) 4.7 L (20.0-40.0) % [place] % (Auto) 9.9 H (2.0-8.0) % Eos % (Auto) 0.1 L (1.0-3.0) % Baso % (Auto) 0.3 (0.0-1.0) % Immature Gran # (Auto) 0.03 (0.00-0.50) 10^3/uL Neut # (Auto) 12.97 H (2.50-7.00) 10^3/uL Lymph # (Auto) 0.72 L (1.00-4.00) 10^3/uL [place] # (Auto) 1.51 H (0.10-0.80) 10^3/uL Eos # (Auto) 0.01 L (0.10-0.30) 10^3/uL Baso # (Auto) 0.04 (0.00-0.10) 10^3/uL Sodium 140 (136-145) mmol/L Potassium 4.4 (3.3-5.3) mmol/L Chloride 101 (98-115) mmol/L Carbon Dioxide 27.8 (21.0-32.0) mmol/L Anion Gap 15.6 H (5-15) mmol/L BUN 28 H (6-25) mg/dL Creatinine 1.07 (0.51-1.17) mg/dL Est Cr Clr Drug Dosing 54.25 mL/min Estimated GFR (MDRD) 51 mL/min Glucose 130 H (75 - 99) mg/dL POC Glucose (74-106) mg/dl Calcium 9.1 (8.7-10.3) mg/dL Specimen Type . Urine Color Yellow (YELLOW) Urine Appearance Clear (CLEAR) Urine pH 8.5 (5.0-9.0) Ur Specific [place] 1.015 (1.005-1.030) Urine Protein Negative (NEGATIVE) mg/dL Urine Glucose (UA) Negative (NEGATIVE) mg/dL Urine Ketones Negative (NEGATIVE) mg/dL Urine Occult Blood Trace-intact H (NEGATIVE) Urine Nitrite Negative (NEGATIVE) Urine Bilirubin Negative (NEGATIVE) Urine Urobilinogen 1.0 (0.2-1.0) E.U./dL Ur Leukocyte Esterase Negative (NEGATIVE) Urine RBC 0-5 (0-5) /HPF Urine WBC 0-5 (0-5) /HPF Ur Epithelial Cells Moderate H /LPF Urine Bacteria Occasional (NONE TO FEW) /HPF Urine Mucus Few H (NEGATIVE) /LPF 12/03/18 Range/Units 15:17 WBC (5.00-10.00) 10^3/uL RBC (3.80-5.50) 10^6/uL Hgb (12.0-16.0) g/dL Hct (37.0-47.0) % MCV (82.0-92.0) fL MCH (27.0-31.0) pg MCHC (32.0-36.0) g/dL RDW (11.5-14.5) % Plt Count (150-400) 10^3/uL MPV (7.4-10.4) fL Immature Gran % (Auto) (0.0-5.0) % Neut % (Auto) (50.0-70.0) % Lymph % (Auto) (20.0-40.0) % [place] % (Auto) (2.0-8.0) % Eos % (Auto) (1.0-3.0) % Baso % (Auto) (0.0-1.0) % Immature Gran # (Auto) (0.00-0.50) 10^3/uL Neut # (Auto) (2.50-7.00) 10^3/uL Lymph # (Auto) (1.00-4.00) 10^3/uL [place] # (Auto) (0.10-0.80) 10^3/uL Eos # (Auto) (0.10-0.30) 10^3/uL Baso # (Auto) (0.00-0.10) 10^3/uL Sodium (136-145) mmol/L Potassium (3.3-5.3) mmol/L Chloride (98-115) mmol/L Carbon Dioxide (21.0-32.0) mmol/L Anion Gap (5-15) mmol/L BUN (6-25) mg/dL Creatinine (0.51-1.17) mg/dL Est Cr Clr Drug Dosing mL/min Estimated GFR (MDRD) mL/min Glucose (75 - 99) mg/dL POC Glucose 106 (74-106) mg/dl Calcium (8.7-10.3) mg/dL Specimen Type Urine Color (YELLOW) Urine Appearance (CLEAR) Urine pH (5.0-9.0) Ur Specific [place] (1.005-1.030) Urine Protein (NEGATIVE) mg/dL Urine Glucose (UA) (NEGATIVE) mg/dL Urine Ketones (NEGATIVE) mg/dL Urine Occult Blood (NEGATIVE) Urine Nitrite (NEGATIVE) Urine Bilirubin (NEGATIVE) Urine Urobilinogen (0.2-1.0) E.U./dL Ur Leukocyte Esterase (NEGATIVE) Urine RBC (0-5) /HPF Urine WBC (0-5) /HPF Ur Epithelial Cells /LPF Urine Bacteria (NONE TO FEW) /HPF Urine Mucus (NEGATIVE) /LPF Meds: Medications Discontinued Medications Generic Name Dose Route Start Last Admin Trade Name Freq PRN Reason Stop Dose Admin Amoxicillin/Clavulanate Potassium 1 tab 12/03/18 16:00 12/03/18 16:12 Augmentin 875 Mg/125 Mg PO 12/03/18 16:01 1 tab ONETIME ONE Administration Amoxicillin/Clavulanate Potassium 1 tab 12/03/18 16:05 12/03/18 16:12 Augmentin 875 Mg/125 Mg PO 12/03/18 16:06 Not Given ONETIME ONE Sodium Chloride 1,000 mls @ 999 mls/hr 12/03/18 15:03 12/03/18 15:10 Normal Saline IV 12/03/18 16:03 999 mls/hr .BOLUS ONE Administration - Re-Assessments/Exams Free Text/Narrative Re-Assessment/Exam: 12/03/18 16:24 With fluids headache is significantly improved per patient. We wrapped feet to knees bilat with CONCETTA wraps and instructed patient on their use. Discussed findings and treatment plan. Dose of Augmentin was given in ER and one sent home to take before RX is filled. Discharged to home in stable condition. Departure - Departure Time of Disposition: 16:07 Disposition: Home, Self-Care 01 Condition: Good Clinical Impression: Neutrophilic leukocytosis, Bilateral lower extremity edema, Type 2 diabetes mellitus treated without insulin Acute sinus infection Qualifiers: Sinusitis location: maxillary Recurrence: not specified as recurrent Qualified Code(s): J01.00 - Acute maxillary sinusitis, unspecified - Discharge Information Instructions: Edema, [id number] Forms: ED Department Discharge Additional Instructions: 1. Take the Augmentin as directed. 2. Wrap both legs as much of the time as possible to reduce the edema. 3. In 3-5 days follow up with Fredo Zarate NP for recheck of your sinus infection and leg edema. Hopefully at that time the swelling will be reduced enough to get properly fitted with MICHAEL hose or other similar compression stockings. 4. If worsening recheck sooner with Fredo or other PCP.
== END 2018-12-03 16:45 | disposition home or self-care (01) ==
LOC: KA.ED 14:42
DX: D72.828 Other elevated white blood cell count (principal); R60.0 Localized edema; E11.9 Type 2 diabetes mellitus without complications; J01.00 Acute maxillary sinusitis, unspecified; I10 Essential (primary) hypertension; K21.9 Gastro-esophageal reflux disease without esophagitis; I25.10 Atherosclerotic heart disease of native coronary artery without angina pectoris; F41.9 Anxiety disorder, unspecified; Z88.1 Allergy status to other antibiotic agents; Z88.7 Allergy status to serum and vaccine; Z88.8 Allergy status to other drugs, medicaments and biological substances; Z91.048 Other nonmedicinal substance allergy status; Z79.899 Other long term (current) drug therapy; Z79.82 Long term (current) use of aspirin; Z79.84 Long term (current) use of oral hypoglycemic drugs; Z79.02 Long term (current) use of antithrombotics/antiplatelets; Z95.5 Presence of coronary angioplasty implant and graft
CPT/HCPCS: 80048; 81001; 82962; 85025; 96360; 99283; A9270; J7030

== ENCOUNTER 2019-04-10 17:27 | Observation (INO) | payer MEDICARE, OTHER ==
[2019-04-10] MEDS ORDERED: Atropine 0.1 MG/ML 10 ML Syringe IVPUSH PRN (18:01)
[2019-04-10] MEDS ORDERED: Nitroglycerin 0.4 MG Tab.SL SL PRN ×2 (18:01→22:22)
[2019-04-10] MEDS ORDERED: Lidocaine 2% 100 MG/5 ML Syringe IVPUSH PRN (18:01)
[2019-04-10] MEDS ORDERED: Sodium Chloride 0.9% 10 ML Syringe FLUSH PRN (18:01)
[2019-04-10] MEDS ORDERED: EPINEPHrine 1:10,000 1 MG/10 ML Syringe IVPUSH PRN (18:01)
[2019-04-10 18:35] LABS: ANION GAP 14.8 mmol/L (5-15); CHLORIDE,CL 101 mmol/L (98-115); SODIUM,NA 141 mmol/L (136-145)
[2019-04-10] MEDS ORDERED: Diclofenac Sodium 1% Gel 100 GM Tube TOP PRN (22:22)
[2019-04-10] MEDS ORDERED: Meclizine 25 MG Tab PO PRN (22:22)
[2019-04-10] MEDS ORDERED: ARNICA TOP PRN (22:22)
[2019-04-10] MEDS ORDERED: Non-Formulary Medication 1 Each PO PRN (22:22)
[2019-04-10] MEDS ORDERED: Furosemide 20 MG Tab PO PRN (22:22)
[2019-04-10] MEDS ORDERED: Acetaminophen 650 MG Tab.ER PO PRN (22:22)
[2019-04-10] MEDS ORDERED: EXENATIDE SQ SCH (22:30)
[2019-04-10] MEDS ORDERED: Estrogens,Conjugated Vaginal Crm 30 GM Tube VAG SCH (22:45)
[2019-04-10] MEDS ORDERED: Ticagrelor 90 MG Tab PO ONE (22:52)
[2019-04-10] MEDS ORDERED: Pregabalin 100 MG Cap ONE (22:55)
[2019-04-10] MEDS ORDERED: Simethicone 80 MG Tab.Chew PO PRN (23:00)
[2019-04-11] MEDS ORDERED: Pregabalin 100 MG Cap PO SCH (09:00)
[2019-04-11] MEDS ORDERED: Ticagrelor 90 MG Tab PO SCH (09:00)
[2019-04-11] MEDS ORDERED: Cholecalciferol (Vitamin D3) 25 MCG Tab PO SCH (09:00)
[2019-04-11] MEDS ORDERED: Glimepiride 2 MG Tab PO SCH (09:00)
[2019-04-11] MEDS ORDERED: Iron Polysaccharides Complex 150 MG Cap PO SCH (09:00)
[2019-04-11] MEDS ORDERED: Hydrochlorothiazide 25 MG Tab PO SCH (09:00)
[2019-04-11] MEDS ORDERED: Ezetimibe 10 MG Tab PO SCH (09:00)
[2019-04-11] MEDS ORDERED: Aspirin 81 MG Tab.Chew PO SCH (09:00)
[2019-04-11] MEDS ORDERED: Potassium Chloride 10 MEQ Tab.ER PO SCH (09:00)
[2019-04-11] MEDS ORDERED: Non-Formulary Medication 1 Each (Ubidecarenone [Co Q-10] 100 MG) PO SCH (09:00)
[2019-04-11 11:54] VITALS: BP 146/71; PULSE 74
[2019-04-11] MEDS ORDERED: metFORMIN 500 MG Tab PO SCH ×2 (12:00→18:00)
--- NOTE | 2019-04-11 12:05 | PCM.DCSUM1 ---
Discharge Summary - Hospital Course Free Text/Narrative:: Date of admission: 04/10/19 Date of discharge: 04/11/19 Admission diagnoses: Chest pain CAD PVD HTN DMT2 HLD Morbid obesity, BMI 47 Discharge diagnoses: Chest pain, resolved CAD PVD HTN DMT2 HLD Morbid obesity, BMI 47 Consultations: None Procedures: None Hospital course: 68yoF with history notable for CAD with recent stent placement, PVD, HTN, DMT2, HLD, and morbid obesity who saw PCP MARII Hanna, at [facility] on the day of admission for routine visit, when she endorsed chest pain that began 2 hours prior. EKG was obtained without changes from prior and given timecourse of symptoms and history, was admitted for serial troponin evaluation and telemetry monitoring. Troponin x3 wnl. Telemetry was without concerns. She had no recurrence of chest pain and was deemed ready for discharge home. Etiology of episode likely noncardiac. She was continued on outpatient medications during her stay. Discharge and follow-up recommendations: - Discharge to home - Medication changes at discharge: None - Follow-up with PCP MARII Hanna, within the next 5 days - Discharge Data Discharge Date: 04/11/19 Discharge Disposition: Home, Self-Care 01 Condition: Good - Referral to Home Health Primary Care Physician: Fredo Zarate NP - Patient Instructions Diet: Heart Healthy Diet Activity: As Tolerated Showering/Bathing: May Shower Notify Provider of: Fever, Increased Pain, Nausea and/or Vomiting - Discharge Plan *PRESCRIPTION DRUG MONITORING PROGRAM REVIEWED*: Not Applicable *COPY OF PRESCRIPTION DRUG MONITORING REPORT IN PATIENT BAM: Not Applicable Home Medications: Home Meds Glimepiride [Amaryl] 4 mg PO DAILY 04/23/14 [History] Meclizine [Antivert] 25 mg PO Q4HR PRN 04/23/14 [History] Pioglitazone [Actos] 30 mg PO BEDTIME 04/23/14 [History] Pregabalin [Lyrica] 100 mg PO BID 04/23/14 [History] Valsartan/Hydrochlorothiazide [Valsartan-Hctz 80-12.5 mg Tab] 0.5 each PO DAILY 04/23/14 [History] diphenhydrAMINE HCl [Benadryl] 25 mg PO DAILY PRN 04/23/14 [History] metFORMIN [Glucophage] 1,000 mg PO DAILY@1200 04/23/14 [History] Acetaminophen [Tylenol Arthritis Pain] 650 mg PO Q8H PRN 07/17/14 [History] Cholecalciferol (Vitamin D3) [Vitamin D3] 1,000 unit PO DAILY 07/17/14 [History] metFORMIN [Glucophage] 1,500 mg PO DAILY@1800 07/17/14 [History] Omeprazole 20 mg PO BEDTIME 08/26/15 [History] Diclofenac Sodium [Voltaren 1% Gel] 2 gm TOP DAILY PRN 12/12/15 [History] Arnica 1 applic TOP TID PRN 06/27/17 [History] Aspirin 81 mg PO BID 06/27/17 [History] Furosemide [Lasix] 20 mg PO DAILY PRN 06/27/17 [History] Iron Polysaccharides Complex [Ferrex 150] 150 mg PO DAILY 06/27/17 [History] Loperamide HCl [Imodium A-D] 2 mg PO ASDIRECTED 06/27/17 [History] Nitroglycerin [Nitrostat] 0.4 mg SL Q5M PRN 06/27/17 [History] Potassium Chloride [Klor-Con 10] 10 meq PO DAILY 06/27/17 [History] Simethicone [Gas Relief] 125 mg PO TIDMEALS PRN 06/27/17 [History] Excedrin Back And Body 1 tab PO ASDIRECTED PRN 06/28/17 [History] Devil's Claw Extract [Devil's Claw] 480 mg PO DAILY 04/10/19 [History] Estrogens, Conjugated [Premarin Vaginal Crm] 1 applic VAG ASDIRECTED 04/10/19 [ History] Exenatide [Byetta] 1.2 ml SQ WEEKLY 04/10/19 [History] Ezetimibe [Zetia] 10 mg PO DAILY 04/10/19 [History] Non-Formulary Medication [NF Drug] 1 tab PO BEDTIME PRN 04/10/19 [History] 95/Iron Fum/Folic/Dha [ + Dha Combo Pack] 1 tab PO DAILY [History] Resveratrol 150 mg PO DAILY 04/10/19 [History] Ticagrelor [Brilinta] 90 mg PO BID 04/10/19 [History] Ubidecarenone [Co Q-10] 100 mg PO DAILY 04/10/19 [History] Referrals: Fredo Zarate, [employer] [Primary Care Provider] - 04/16/19 1:30 pm - Discharge Summary/Plan Comment DC Time >30 min.: Yes - General Info Date of Service: 04/11/19 Subjective Update: Mrs. Le reports overall feeling well today. Denies any recurrent chest pain. Has no new complaints. Feels ready to be discharged to home. - Patient Data Vitals - Most Recent: Last Vital Signs Temp 37.1 C 04/11/19 11:00 Pulse 74 04/11/19 11:00 Resp 16 04/11/19 11:00 BP 146/71 H 04/11/19 11:00 Pulse Ox 99 04/11/19 11:00 Weight - Most Recent: 144.605 kg I&O - Last 24 hours: Intake & Output 04/10/19 04/11/19 04/11/19 22:59 06:59 14:59 Intake Total 480 450 Balance 480 450 Lab Results - Last 24 hrs: Laboratory Results - last 24 hr 04/10/19 04/10/19 04/10/19 Range/Units 17:55 17:55 18:20 WBC 6.88 (5.00-10.00) 10^3/uL RBC 3.88 (3.80-5.50) 10^6/uL Hgb 11.8 L (12.0-16.0) g/dL Hct 36.2 L (37.0-47.0) % MCV 93.3 H (82.0-92.0) fL MCH 30.4 (27.0-31.0) pg MCHC 32.6 (32.0-36.0) g/dL RDW 13.9 (11.5-14.5) % Plt Count 363 (150-400) 10^3/uL MPV 9.8 (7.4-10.4) fL Immature Gran % (Auto) 0.1 (0.0-5.0) % Neut % (Auto) 48.0 L (50.0-70.0) % Lymph % (Auto) 31.8 (20.0-40.0) % [place] % (Auto) 12.9 H (2.0-8.0) % Eos % (Auto) 6.5 H (1.0-3.0) % Baso % (Auto) 0.7 (0.0-1.0) % Immature Gran # (Auto) 0.01 (0.00-0.50) 10^3/uL Neut # (Auto) 3.29 (2.50-7.00) 10^3/uL Lymph # (Auto) 2.19 (1.00-4.00) 10^3/uL [place] # (Auto) 0.89 H (0.10-0.80) 10^3/uL Eos # (Auto) 0.45 H (0.10-0.30) 10^3/uL Baso # (Auto) 0.05 (0.00-0.10) 10^3/uL ESR 65 H (0-20) mm/hr Sodium 141 (136-145) mmol/L Potassium 4.2 (3.3-5.3) mmol/L Chloride 101 (98-115) mmol/L Carbon Dioxide 29.4 (21.0-32.0) mmol/L Anion Gap 14.8 (5-15) mmol/L BUN 26 H (6-25) mg/dL Creatinine 0.89 (0.51-1.17) mg/dL Est Cr Clr Drug Dosing 64.10 mL/min Estimated GFR (MDRD) > 60 mL/min Glucose 97 (75 - 99) mg/dL POC Glucose (74-106) mg/dl Calcium 8.9 (8.7-10.3) mg/dL Troponin I 0.06 (0.00-0.070) ng/mL 04/10/19 04/11/19 04/11/19 Range/Units 20:53 06:31 08:04 WBC (5.00-10.00) 10^3/uL RBC (3.80-5.50) 10^6/uL Hgb (12.0-16.0) g/dL Hct (37.0-47.0) % MCV (82.0-92.0) fL MCH (27.0-31.0) pg MCHC (32.0-36.0) g/dL RDW (11.5-14.5) % Plt Count (150-400) 10^3/uL MPV (7.4-10.4) fL Immature Gran % (Auto) (0.0-5.0) % Neut % (Auto) (50.0-70.0) % Lymph % (Auto) (20.0-40.0) % [place] % (Auto) (2.0-8.0) % Eos % (Auto) (1.0-3.0) % Baso % (Auto) (0.0-1.0) % Immature Gran # (Auto) (0.00-0.50) 10^3/uL Neut # (Auto) (2.50-7.00) 10^3/uL Lymph # (Auto) (1.00-4.00) 10^3/uL [place] # (Auto) (0.10-0.80) 10^3/uL Eos # (Auto) (0.10-0.30) 10^3/uL Baso # (Auto) (0.00-0.10) 10^3/uL ESR (0-20) mm/hr Sodium (136-145) mmol/L Potassium (3.3-5.3) mmol/L Chloride (98-115) mmol/L Carbon Dioxide (21.0-32.0) mmol/L Anion Gap (5-15) mmol/L BUN (6-25) mg/dL Creatinine (0.51-1.17) mg/dL Est Cr Clr Drug Dosing mL/min Estimated GFR (MDRD) mL/min Glucose (75 - 99) mg/dL POC Glucose 111 H (74-106) mg/dl Calcium (8.7-10.3) mg/dL Troponin I 0.04 0.04 (0.00-0.070) ng/mL Med Orders - Current: Current Medications Acetaminophen (Tylenol Arthritis Pain) 650 mg PO Q8H PRN PRN Reason: Pain Last Admin: 04/11/19 02:10 Dose: 650 mg Aspirin (Aspirin) 81 mg PO BID [facility] Last Admin: 04/11/19 09:17 Dose: 81 mg Atropine Sulfate (Atropine 0.1 Mg/Ml) 0 mg IVPUSH ASDIRECTED PRN PRN Reason: Heart. Cholecalciferol (Vitamin D3) 25 mcg PO DAILY [facility] Last Admin: 04/11/19 09:24 Dose: 25 mcg Diclofenac Sodium (Voltaren 1% Gel) 2 gm TOP DAILY PRN PRN Reason: Pain Ezetimibe (Zetia) 10 mg PO DAILY [facility] Last Admin: 04/11/19 09:23 Dose: 10 mg Epinephrine HCl (Epinephrine 1:10,000) 1 mg IVPUSH ASDIRECTED PRN PRN Reason: Heart. Estrogens Conjugated (Premarin Vaginal Crm) 0 gm VAG ASDIRECTED [facility] Furosemide (Lasix) 20 mg PO DAILY PRN PRN Reason: Edema Glimepiride (Amaryl) 4 mg PO DAILY [facility] Last Admin: 04/11/19 09:21 Dose: 4 mg Hydrochlorothiazide (Hydrochlorothiazide) 6.25 mg PO DAILY [facility] Last Admin: 04/11/19 09:22 Dose: 6.25 mg Lidocaine HCl (Xylocaine 2%) 0 mg IVPUSH ASDIRECTED PRN PRN Reason: Heart. Meclizine HCl (Antivert) 25 mg PO Q4HR PRN PRN Reason: Dizziness Metformin HCl (Glucophage) 1,000 mg PO DAILY@1200 [facility] Metformin HCl (Glucophage) 1,500 mg PO DAILY@1800 [facility] Nitroglycerin (Nitrostat) 0.4 mg SL ASDIRECTED PRN PRN Reason: Heart. Nitroglycerin (Nitrostat) 0.4 mg SL Q5M PRN PRN Reason: Chest Pain Non-Formulary Medication (Arnica [Arnica]) 1 applic TOP TID PRN PRN Reason: Pain Non-Formulary Medication (Exenatide) 1.2 ml SQ WEEKLY [facility] Non-Formulary Medication (Nf Drug) 1 each PO BEDTIME PRN PRN Reason: Other Non-Formulary Medication (Ubidecarenone [Co Q-10]) 100 mg PO DAILY [facility] Omeprazole (Omeprazole) 20 mg PO BEDTIME [facility] Pioglitazone HCl (Actos) 30 mg PO BEDTIME [facility] Last Admin: 04/10/19 22:59 Dose: 30 mg Polysaccharide Iron Complex (Ferrex 150) 150 mg PO DAILY [facility] Last Admin: 04/11/19 09:18 Dose: 150 mg Potassium Chloride (Klor-Con 10) 10 meq PO DAILY [facility] Last Admin: 04/11/19 09:21 Dose: 10 meq Pregabalin (Lyrica) 100 mg PO BID [facility] Last Admin: 04/11/19 09:21 Dose: 100 mg Simethicone (Simethicone) 120 mg PO TIDMEALS PRN PRN Reason: Gas Last Admin: 04/11/19 02:16 Dose: 120 mg Sodium Chloride (Saline Flush) 10 ml FLUSH Q8HR PRN PRN Reason: keep vein open Ticagrelor (Brilinta) 90 mg PO BID [facility] Last Admin: 04/11/19 09:19 Dose: 90 mg Valsartan (Diovan) 40 mg PO DAILY [facility] Discontinued Medications Pregabalin (Lyrica) Confirm Administered Dose 100 mg .ROUTE .STK-MED ONE Stop: 04/10/19 22:56 Last Admin: 04/10/19 22:59 Dose: 100 mg Ticagrelor (Brilinta) Confirm Administered Dose 90 mg PO .STK-MED ONE Stop: 04/10/19 22:53 Last Admin: 04/10/19 22:59 Dose: 90 mg - Exam Physical Findings Comments:: GENERAL: Well-appearing, morbidly obese, elderly female sitting in bedside chair in no acute distress. HEENT: Normocephalic, atraumatic. Conjunctiva clear. Nares patent without discharge. Mucous membranes moist, posterior pharynx unremarkable. NECK: Supple, no masses. CV: Regular rate and rhythm, no murmurs, rubs, or gallops. 2+ radial pulses. PULMONARY: Normal effort, clear to auscultation bilaterally except diminished in bases, no wheezes, rales, or rhonchi. ABDOMEN: Positive bowel sounds, soft, nontender, nondistended. EXTREMITIES: 2+ edema of bilateral lower extremities to knee. MUSCULOSKELETAL: Moves all extremities well. NEUROLOGICAL: No obvious deficits. DERMATOLOGIC: Bilateral lower extremities with diffuse venous stasis change with hyperpigmentation. PSYCHIATRIC: Alert, interactive, appropriate affect.
[2019-04-11] MEDS ORDERED: Omeprazole 20 MG Cap.CR PO SCH (21:00)
== END 2019-04-11 14:10 | disposition home or self-care (01) ==
LOC: KA.MS 17:27 → UNDOADMOB 17:30 → KA.MS 17:30
PROVIDERS: ADMIT Nurse Practitioner Family; ATTEND Family Medicine
DX: R07.9 Chest pain, unspecified (principal); I10 Essential (primary) hypertension; E78.00 Pure hypercholesterolemia, unspecified; E78.5 Hyperlipidemia, unspecified; E11.621 Type 2 diabetes mellitus with foot ulcer; E11.51 Type 2 diabetes mellitus with diabetic peripheral angiopathy without gangrene; L97.521 Non-pressure chronic ulcer of other part of left foot limited to breakdown of skin; I25.119 Atherosclerotic heart disease of native coronary artery with unspecified angina pectoris; N32.81 Overactive bladder; M17.12 Unilateral primary osteoarthritis, left knee; E66.01 Morbid (severe) obesity due to excess calories; Z68.42 Body mass index [BMI] 45.0-49.9, adult; Z79.84 Long term (current) use of oral hypoglycemic drugs; Z79.899 Other long term (current) drug therapy; Z88.8 Allergy status to other drugs, medicaments and biological substances; Z88.1 Allergy status to other antibiotic agents; Z91.041 Radiographic dye allergy status; Z88.7 Allergy status to serum and vaccine; Z91.048 Other nonmedicinal substance allergy status; Z95.5 Presence of coronary angioplasty implant and graft
CPT/HCPCS: 36415; 80048; 82962; 84484; 85025; 85651; A9270-GY; G0378

== ENCOUNTER 2024-09-27 16:07 | Inpatient (IN) | payer MEDICARE, OTHER ==
[2024-09-27 16:45] LABS: BASOPHILS ABSOLUTE AUTO 0.05 10^3/uL (0.00-0.10); BASOPHILS PERCENT AUTO 0.4 % (0.0-1.0); EOSINOPHILS ABSOLUTE AUTO 0.27 10^3/uL (0.10-0.30); EOSINOPHILS PERCENT AUTO 2.3 % (1.0-3.0); IMMATURE GRAN ABSOLUTE AUTO 0.04 10^3/uL (0.00-0.04); IMMATURE GRAN PERCENT AUTO 0.3 % (0.0-0.4); LYMPHOCYTES ABSOLUTE AUTO 1.15 10^3/uL (1.00-4.00); LYMPHOCYTES PERCENT AUTO 9.6 % (20.0-40.0); MEAN PLATELET VOLUME 10.4 fL (7.4-10.4); MONOCYTES ABSOLUTE AUTO 1.24 10^3/uL (0.10-0.80); MONOCYTES PERCENT AUTO 10.4 % (2.0-8.0); NEUTROPHILS ABSOLUTE AUTO 9.21 10^3/uL (2.50-7.00); NEUTROPHILS PERCENT AUTO 77.0 % (50.0-70.0); PLATELET COUNT,PLT 346 10^3/uL (150-400); RED BLOOD CELL COUNT 3.73 10^6/uL (3.80-5.50); RED CELL DISTRIBUTION WIDTH 12.7 % (11.5-14.5); WHITE BLOOD CELL COUNT,WBC 11.96 10^3/uL (5.00-10.00)
[2024-09-27 17:00] LABS: LACTIC ACID 1.5 mmol/L (0.4-2.0)
[2024-09-27 17:03] LABS: ALANINE AMINOTRANSFERASE,ALT 25 U/L (14-63); ASPARTATE AMNIOTRANSFERASE,AST 12 U/L (15-37); BILIRUBIN TOTAL 0.5 mg/dL (0.2-1.0); BLOOD UREA NITROGEN,BUN 44 mg/dL (7-18); CARBON DIOXIDE,CO2 26.0 mmol/L (21.0-32.0); CHLORIDE,CL 95 mmol/L (98-107); CREATININE 1.80 mg/dL (0.51-1.17); EST CRCL DRUG DOSING (CG) 29.60 mL/min; POTASSIUM,K 4.6 mmol/L (3.5-5.1); PROTEIN TOTAL,TP 7.1 g/dL (6.4-8.2); SODIUM,NA 131 mmol/L (136-145)
[2024-09-27 17:15] LABS: B-TYPE NATRIURETIC PEPTIDE,BNP 94 pg/mL (0-100)
[2024-09-27 17:16] LABS: ESTIMATED GFR 29 mL/min (>=60); GLUCOSE RANDOM > 500 mg/dL (70-140)
[2024-09-27 17:24] LABS: BASE EXCESS ARTERIAL,POC 3 mmol/L ((-2)-3); HCO3 ARTERIAL,POC 26.4 mmol/L (21-28); O2 SATURATION ARTERIAL,POC 93.0 % (94-98); PCO2 ARTERIAL,POC 36 mmHg (35-48); PH ARTERIAL,POC 7.47 pH (7.35-7.45); PO2 ARTERIAL,POC 62 mmHg (83-108); TCO2 ARTERIAL,POC 25 mmol/L (22-29)
[2024-09-27] MEDS ORDERED: 50% Dextrose in Water 50 ML Syringe IVPUSH PRN (17:27)
[2024-09-27] MEDS ORDERED: Glucose Gel 15 GM in 37.5 GM Tube PO PRN (17:27)
[2024-09-27 17:37] LABS: APPEARANCE,URINE CLEAR (CLEAR); GLUCOSE,URINE >=1000 mg/dL (NEGATIVE); OCCULT BLOOD,URINE MODERATE (NEGATIVE)
[2024-09-27 17:46] LABS: AMPHETAMINES SCREEN, URINE NEGATIVE (NEGATIVE); COCAINE METABOLITES,URINE NEGATIVE (NEGATIVE); METHADONE SCREEN, URINE NEGATIVE (NEGATIVE); METHAMPHETAMINES SCREEN, URINE NEGATIVE (NEGATIVE); OXYCODONE SCREEN,URINE NEGATIVE (NEGATIVE); PCP SCREEN,URINE NEGATIVE (NEGATIVE); TCA SCREEN,URINE NEGATIVE (NEGATIVE); THC SCREEN,URINE 50 NG/ML NEGATIVE (NEGATIVE)
[2024-09-27 17:51] LABS: EPITHELIAL CELLS,URINE RARE /LPF
[2024-09-27] MEDS: Iopamidol 755 Mg/ML 100 ML Bottle IV ONE (19:17)
[2024-09-27] MEDS: Sodium Chloride 0.9% 10 ML Syringe FLUSH PRN (22:14)
[2024-09-28] MEDS ORDERED: 50% Dextrose in Water 50 ML Syringe IVPUSH PRN ×2 (00:55→01:00)
[2024-09-28] MEDS ORDERED: Glucose Gel 15 GM in 37.5 GM Tube PO PRN (00:55)
[2024-09-28] MEDS: Omeprazole 20 MG Cap.CR PO SCH (05:45)
[2024-09-28 07:53] LABS: BASOPHILS ABSOLUTE AUTO 0.04 10^3/uL (0.00-0.10); BASOPHILS PERCENT AUTO 0.3 % (0.0-1.0); EOSINOPHILS ABSOLUTE AUTO 0.27 10^3/uL (0.10-0.30); EOSINOPHILS PERCENT AUTO 2.3 % (1.0-3.0); IMMATURE GRAN ABSOLUTE AUTO 0.05 10^3/uL (0.00-0.04); IMMATURE GRAN PERCENT AUTO 0.4 % (0.0-0.4); LYMPHOCYTES ABSOLUTE AUTO 1.96 10^3/uL (1.00-4.00); LYMPHOCYTES PERCENT AUTO 16.4 % (20.0-40.0); MEAN PLATELET VOLUME 10.3 fL (7.4-10.4); MONOCYTES ABSOLUTE AUTO 1.23 10^3/uL (0.10-0.80); MONOCYTES PERCENT AUTO 10.3 % (2.0-8.0); NEUTROPHILS ABSOLUTE AUTO 8.38 10^3/uL (2.50-7.00); NEUTROPHILS PERCENT AUTO 70.3 % (50.0-70.0); PLATELET COUNT,PLT 347 10^3/uL (150-400); RED BLOOD CELL COUNT 3.53 10^6/uL (3.80-5.50); RED CELL DISTRIBUTION WIDTH 12.7 % (11.5-14.5); WHITE BLOOD CELL COUNT,WBC 11.93 10^3/uL (5.00-10.00)
[2024-09-28 08:08] LABS: BLOOD UREA NITROGEN,BUN 40.0 mg/dL (7-18); CARBON DIOXIDE,CO2 26.9 mmol/L (21.0-32.0); CHLORIDE,CL 100.0 mmol/L (98-107); CREATININE 1.62 mg/dL (0.51-1.17); EST CRCL DRUG DOSING (CG) 32.88 mL/min; GLUCOSE RANDOM 395.0 mg/dL (70-140); POTASSIUM,K 4.3 mmol/L (3.5-5.1); SODIUM,NA 137.0 mmol/L (136-145)
[2024-09-28 08:09] LABS: ESTIMATED GFR 33.0 mL/min (>=60)
[2024-09-28] MEDS: Cholecalciferol (Vitamin D3) 25 MCG Tab PO SCH (08:30)
[2024-09-28] MEDS: Insulin Lispro 100 Unit/ML 3 ML KwikPen SUBCUT SCH (08:31)
[2024-09-28] MEDS: VALSARTAN PO SCH (12:17)
[2024-09-28] MEDS: HYDROCHLOROTHIAZIDE PO SCH (12:17)
[2024-09-28] MEDS: Insulin Glargine,Human Rec. Analog 100 Units/ML 3 ML Pen SUBCUT SCH (21:49)
[2024-09-28] MEDS: VANCOmycin 1 GM/200 ML 1 GM in Premix Bag 1 BAG IV SCH (22:06)
[2024-09-29] MEDS ORDERED: 50% Dextrose in Water 50 ML Syringe IVPUSH PRN (12:08)
[2024-09-29] MEDS ORDERED: Glucose Gel 15 GM in 37.5 GM Tube PO PRN (12:08)
[2024-09-29] MEDS: Insulin Lispro 100 Unit/ML 3 ML KwikPen SUBCUT ONE (12:20)
[2024-09-29] MEDS: Trolamine Salicylate/Aloe Vera 10% Crm 85 GM Tube TOP PRN (20:12)
[2024-09-29] MEDS: Acetaminophen/HYDROcodone 325-5 MG Tab PO PRN (21:26)
[2024-09-29] MEDS: Insulin Glargine,Human Rec. Analog 100 Units/ML 3 ML Pen SUBCUT SCH (21:35)
[2024-09-30] MEDS: Acetaminophen 650 MG Tab.ER PO PRN (04:35)
[2024-09-30 11:02] LABS: ALANINE AMINOTRANSFERASE,ALT 21.0 U/L (14-63); ASPARTATE AMNIOTRANSFERASE,AST 13.0 U/L (15-37); BILIRUBIN TOTAL 0.3 mg/dL (0.2-1.0); BLOOD UREA NITROGEN,BUN 33.0 mg/dL (7-18); CARBON DIOXIDE,CO2 25.2 mmol/L (21.0-32.0); CHLORIDE,CL 101.0 mmol/L (98-107); CREATININE 1.42 mg/dL (0.51-1.17); EST CRCL DRUG DOSING (CG) 37.51 mL/min; POTASSIUM,K 4.3 mmol/L (3.5-5.1); PROTEIN TOTAL,TP 6.7 g/dL (6.4-8.2); SODIUM,NA 138.0 mmol/L (136-145)
[2024-09-30 11:04] LABS: ESTIMATED GFR 39.0 mL/min (>=60); GLUCOSE RANDOM 410.0 mg/dL (70-140)
[2024-09-30] MEDS ORDERED: 50% Dextrose in Water 50 ML Syringe IVPUSH PRN (11:19)
[2024-09-30] MEDS ORDERED: Glucose Gel 15 GM in 37.5 GM Tube PO PRN (11:19)
[2024-09-30] MEDS: Insulin Lispro 100 Unit/ML 3 ML KwikPen SUBCUT ONE (11:28)
[2024-09-30] MEDS: Insulin Glargine,Human Rec. Analog 100 Units/ML 3 ML Pen SUBCUT SCH (20:36)
[2024-10-01] MEDS: Insulin Glargine,Human Rec. Analog 100 Units/ML 3 ML Pen SUBCUT SCH (21:02)
[2024-10-02 07:32] LABS: BLOOD UREA NITROGEN,BUN 29.0 mg/dL (7-18); CARBON DIOXIDE,CO2 29.5 mmol/L (21.0-32.0); CHLORIDE,CL 106.0 mmol/L (98-107); CREATININE 1.23 mg/dL (0.51-1.17); EST CRCL DRUG DOSING (CG) 43.31 mL/min; GLUCOSE RANDOM 159.0 mg/dL (70-140); POTASSIUM,K 4.0 mmol/L (3.5-5.1); SODIUM,NA 143.0 mmol/L (136-145)
[2024-10-02 07:46] LABS: ESTIMATED GFR 46.0 mL/min (>=60)
[2024-10-02 11:08] LABS: URINE PROTEIN 45 mg/dL (1-14)
[2024-10-02] MEDS: PREFILLED SUBCUT SCH (11:25)
[2024-10-02] MEDS: OZEMPIC 4 MG/3 ML SUBCUT SCH (11:25)
[2024-10-02 15:33] VITALS: BP 104/64
[2024-10-02 17:24] VITALS: PULSE 84
== END 2024-10-02 16:20 | disposition home or self-care (01) | DRG 638 ==
LOC: KA.ED 16:07 → KA.MS 21:35
PROVIDERS: ADMIT Family Medicine; ATTEND Family Medicine
PROC: 4A033R1 Measurement of Arterial Saturation, Peripheral, Percutaneous Approach (ICD-10-PCS; principal; 2024-09-27)
DX: E11.628 Type 2 diabetes mellitus with other skin complications (principal); E11.8 Type 2 diabetes mellitus with unspecified complications; L03.116 Cellulitis of left lower limb; R60.0 Localized edema; Z91.048 Other nonmedicinal substance allergy status; Z91.148 Patient's other noncompliance with medication regimen for other reason; N30.00 Acute cystitis without hematuria; Z68.42 Body mass index [BMI] 45.0-49.9, adult; N17.9 Acute kidney failure, unspecified; E11.65 Type 2 diabetes mellitus with hyperglycemia; Z66 Do not resuscitate; J30.9 Allergic rhinitis, unspecified; E78.00 Pure hypercholesterolemia, unspecified; M19.90 Unspecified osteoarthritis, unspecified site; E11.40 Type 2 diabetes mellitus with diabetic neuropathy, unspecified; F41.9 Anxiety disorder, unspecified; F32.A Depression, unspecified; N18.9 Chronic kidney disease, unspecified; I12.9 Hypertensive chronic kidney disease with stage 1 through stage 4 chronic kidney disease, or unspecified chronic kidney disease; E11.22 Type 2 diabetes mellitus with diabetic chronic kidney disease; E53.8 Deficiency of other specified B group vitamins; E66.01 Morbid (severe) obesity due to excess calories; E86.0 Dehydration; I87.2 Venous insufficiency (chronic) (peripheral); R79.89 Other specified abnormal findings of blood chemistry; Z96.641 Presence of right artificial hip joint; Z88.8 Allergy status to other drugs, medicaments and biological substances; Z79.899 Other long term (current) drug therapy; Z79.82 Long term (current) use of aspirin; Z95.5 Presence of coronary angioplasty implant and graft; Z98.890 Other specified postprocedural states; Z90.710 Acquired absence of both cervix and uterus; Z79.84 Long term (current) use of oral hypoglycemic drugs
CPT/HCPCS: 36415; 36600; 71045; 71275; 76770; 80048; 80053; 80202; 80305-QW; 81001; 82570; 82803; 82947; 83605; 83880; 84156; 84484; 85025; 85379; 85730; 86140; 87040; 87086; 87088; 87186; 93005; 93010; 93971; 96360; 97161-GP; 97535-GO; 99223-GT; 99232-GT; 99239-GT; 99284; 99285-25; A9270-GY; J0696; J1650; J1815-GY; J3375; J7030; Q3014; Q9967